=== PATIENT | female | born 1955 | race Caucasian/White ===

== ENCOUNTER 2020-01-16 16:44 | Emergency (ER) | payer BC ==
[~2020-01-16] VITALS: Ht 165.1 cm; Wt 76.0 kg
[2020-01-16 17:53] LABS: HEMOGLOBIN 15.5 g/dl (12.0-16.0); IMMATURE GRANULOCYTES 0.5 % (0.0-5.0); MEAN CELL VOLUME 92.6 fL CALC (80.0-100.0); MEAN CORPUSCULAR HGB 31.2 pG CALC (26.0-32.0); MEAN CORPUSCULAR HGB CONC 33.7 g/dL CAL (32.0-36.0); NEUT# 9.5 thou/uL (2.00-7.15); RED BLOOD COUNT 4.97 mill/uL (4.20-5.60); RED CELL DISTRI WIDTH 17.6 % (11.5-15.5)
[2020-01-16 18:05] LABS: BILIRUBIN, TOTAL 5.1 mg/dL (0.0-1.4); CREATININE 1.7 mg/dL (0.5-1.0); POTASSIUM 3.1 mmol/l (3.5-5.1); TOTAL PROTEIN 7.1 g/dL (6.3-8.2)
[2020-01-16] MEDS ORDERED: ZITHROMAX250 MG PO (19:00)
[2020-01-16] MEDS ORDERED: DILAUDID2 MG PO (19:00)
[2020-01-16] MEDS ORDERED: ZOFRAN4 MG/TAB PO (19:00)
[2020-01-16 20:35] VITALS: BP 132/84
== END 2020-01-16 20:35 | disposition home or self-care (01) | DRG 951 ==
LOC: ED 16:44
PROVIDERS: Student in an Organized Health Care Education/Training Program
DX: Z86.73 Personal history of transient ischemic attack (TIA), and cerebral infarction without residual deficits (principal); J18.9 Pneumonia, unspecified organism; C34.90 Malignant neoplasm of unspecified part of unspecified bronchus or lung; K74.60 Unspecified cirrhosis of liver